=== PATIENT | female | born 1960 | race African-American/Black ===

== ENCOUNTER → 2017-06-17 | Outpatient (CLI) | payer OTHER ==
--- NOTE | 2017-06-17 10:39 | KCIC ---
Bone mineral density exam History: Postmenopausal, screening for osteoporosis Comparison: None Findings: Bone mineral density examination utilizing DEXA was performed. Left hip bone mineral density of 0.920 g/cm2 corresponds with a T score -0.2, Z score -0.1. The bone mineral density of the lumbar spine was 1.088 g/cm2 which corresponds with a T-score of 0.4, Z score 0.7. By World Congress on Osteoporosis criteria, a T score of 0 to-1 SD is considered to be within normal limits. A T score of -1 to -2.5 SD is considered osteopenia. A T score less than -2.5 SD is considered osteoporosis Impression: 1. There is normal bone density of the lumbar spine and the left hip. Electronically signed by: Sathish Dan MD (06/17/2017 10:35 AM) [id number]
--- NOTE | 2017-06-17 12:17 | KCIC ---
MR of the right knee Indication: Medial pain. Jumping for over 24 in steel toed boots onto concrete. Technique: The standard multiplanar sequences are obtained. Findings: Medial meniscus: Tear at the posterior horn. Medial subluxation of the meniscus. Lateral meniscus: Intact. Anterior cruciate ligament: Intact Posterior cruciate ligament: Intact Medial collateral ligament: Intact. Iliotibial band: Intact. Posterolateral structures: Fibular collateral ligament, biceps tendon and popliteus tendon are intact. Extensor mechanism: Intact. Fluid: Moderate joint effusion. Articular cartilage -patellofemoral joint: Moderate to severe chondromalacia at the medial femoral trochlea. -medial compartment: Chondromalacia at the medial femoral condyle with a focal full-thickness defect at the central weightbearing aspect measuring about 3 mm. Subjacent bone marrow edema. -lateral compartment:Intact Bones: Subchondral marrow edema at the central weightbearing medial femoral condyle. Soft tissue: Trace Ovalle's cyst. Impression: 1. Medial meniscal tear. 2. Primary osteoarthritis. 3. Subchondral marrow edema at the central weightbearing medial femoral condyle, could be a marrow contusion or a stress injury from repetitive microtrauma. There is a small overlying full-thickness chondral defect. Electronically signed by: Kwasi Olguin MD (06/17/2017 12:14 PM) [facility]
== END | disposition home or self-care (01) ==
LOC: KCIC MRI 09:03
PROVIDERS: ATTEND Physician Assistant Surgical
DX: Z13.820 Encounter for screening for osteoporosis (principal); S83.241A Other tear of medial meniscus, current injury, right knee, initial encounter; M17.11 Unilateral primary osteoarthritis, right knee; Z78.0 Asymptomatic menopausal state; X58.XXXA Exposure to other specified factors, initial encounter; Y93.89 Activity, other specified; Y92.89 Other specified places as the place of occurrence of the external cause; Y99.8 Other external cause status
CPT/HCPCS: 73721; 77080

== ENCOUNTER 2017-07-21 11:33 | Day surgery (SDC) | payer OTHER ==
[~2017-07-21] VITALS: Ht 152.4 cm; Wt 127.0 kg
[~2017-07-21 11:33] MED LIST: CHOL10003 PO; HYDROmorphone 2 MG/ML VIAL IV PRN; IV RINGERS,LACTATED 1000ML 1,000 ML IV SCH; LIDOCAINE 1% PF 2 ML VIAL. ID PRN; MORPHINE SULFATE 2 MG/ML DISP.SYRIN. IV PRN; ONDANSETRON PF 4 MG/2 ML VIAL. IV PRN; PROCHLORPERAZINE 10 MG/2 ML VIAL. IV PRN; fentaNYL PF VIAL 100 MCG/2 ML VIAL IV PRN
[2017-07-21] MEDS ORDERED: PROPOFOL 20 ML IV ONE (12:48)
[2017-07-21] MEDS ORDERED: DEXAMETHASONE SOD PHOS 20 MG/5 ML VIAL. ONE (12:48)
[2017-07-21] MEDS ORDERED: FAMOTIDINE 20 MG/2 ML VIAL ONE (12:48)
[2017-07-21] MEDS ORDERED: LIDOCAINE 2% PF Vial for OR 5 ML VIAL. ONE (12:48)
[2017-07-21] MEDS ORDERED: ONDANSETRON PF 4 MG/2 ML VIAL. ONE (12:48)
[2017-07-21] MEDS ORDERED: BUPIVACAINE MPF 0.5% 30 ML VIAL. ONE (12:52)
[2017-07-21] MEDS ORDERED: SUCCINYLCHOLINE 200 MG/10 ML VIAL. ONE (13:10)
[2017-07-21] MEDS ORDERED: MIDAZOLAM HCL/PF 2 MG/2 ML VIAL. ONE (13:10)
[2017-07-21] MEDS ORDERED: fentaNYL PF VIAL 100 MCG/2 ML VIAL ONE (13:10)
--- NOTE | 2017-07-21 13:26 | DISCH ---
DISCHARGE INSTRUCTIONS Condition on Discharge Condition on Discharge: Stable Activity After Discharge Activity Instructions for Disc: Other, see below Other activity instructions: slowly advance activities as tolerated Weight Bearing Status after Di: As tolerated Diet after Discharge Diet after Discharge: Regular Wound Incision Care Wound/Incision Care: Ice to area for comfort Contacting the after DC Call your doctor for: Concerns you may have Follow-Up Follow up with: Claudia 7-10 days PAM GILMAN MD Jul 21, 2017 13:26
[2017-07-21] MEDS ORDERED: HYDR-965 PO (13:27)
[2017-07-21] MEDS ORDERED: NEOSTIGMINE METHYLSULFATE 5 MG/5 ML SYRINGE. ONE (14:31)
[2017-07-21] MEDS ORDERED: GLYCOPYRROLATE 1 MG/5 ML VIAL. ONE (14:32)
[2017-07-21] MEDS ORDERED: DESFLURANE 31 TO 60 MINUTES IH ONE (14:46)
--- NOTE | 2017-07-21 15:01 | PDOC4 ---
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 Surgeon: Claudia Anesthesia: Gen. Estimated blood loss: 5 mL Complications: None Operative indications: Patient is a 57-year-old female with pain sharp stabbing along the medial aspect of the knee worse with twisting and pivoting MRI had confirmed clinical suspicion of a medial meniscus tear. I had gone over with her the possibility of arthroscopic treatment and removal of the damaged meniscus and the fact that I cannot undo any degenerative changes in the knee which would have to be treated symptomatically on an ongoing basis if they result in further symptoms. All her questions were answered consent was obtained and she agrees to proceed with operative evaluation and treatment Operative text: Patient was identified procedure verified patient placed in the supine position on the operating table. After adequate amounts of general endotracheal anesthesia were administered right lower extremity was prepped and draped in standard sterile fashion with a thigh tourniquet. After timeout was performed patient procedure identified and verified, the right lower extremity was exsanguinated by Esmarch bandage and tourniquet inflated to 350 mmHg. A lateral portal was established a medial portal established using spinal needle localization and the knee joint was systematically examined. She was noted to have good condition and tracking of the patella grade 3 chondromalacia in the trochlea not requiring debridement ACL was probed and found to be intact some loose cartilage fragments were noted in the gutters and suprapatellar pouch and were evacuated by the arthroscopic shaver. She had a displaceable tear of posterior horn of medial meniscus which was trimmed back to stable tissue using arthroscopic punch and shaver. She also had some loose chondral tearing in the medial femoral condyle which was lightly debrided back to stable tissue using arthroscopic shaver and was not full- thickness in nature. ACL again was intact lateral meniscus was probed and found to be intact as was the lateral compartment cartilage. The knee was toured to ensure no loose bodies remained and was drained of arthroscopic fluid fat pad was injected with half percent plain Marcaine portals were closed with nylon suture sterile dressings were applied patient was returned recovery room in stable condition having tolerated procedure well toes were noted be warm pink following deflation of the tourniquet after total tourniquet time of approximately 23 minutes PAM GILMAN MD Jul 21, 2017 15:00
[2017-07-21] MEDS: fentaNYL PF VIAL 100 MCG/2 ML VIAL IV PRN ×4 (15:06→16:01)
[2017-07-21] MEDS ORDERED: HYDROcodone/APAP 7.5/325MG 1 TAB TABLET PO PRN (16:00)
[2017-07-21 16:12] VITALS: BP 100/55
== END 2017-07-21 17:17 | disposition home or self-care (01) ==
LOC: SURG 11:33
PROVIDERS: ATTEND Orthopaedic Surgery
DX: S83.241A Other tear of medial meniscus, current injury, right knee, initial encounter (principal); X58.XXXA Exposure to other specified factors, initial encounter; Y93.89 Activity, other specified; Y92.89 Other specified places as the place of occurrence of the external cause; M19.91 Primary osteoarthritis, unspecified site; Y99.8 Other external cause status; Z87.39 Personal history of other diseases of the musculoskeletal system and connective tissue; Z72.0 Tobacco use
CPT/HCPCS: 29881; J0330; J0690; J1100; J2250; J2405; J2704; J2710; J3010; J3490; S0028; J0780; J2001